=== PATIENT | female | born 1955 | race African-American/Black ===

== ENCOUNTER 2017-07-07 09:41 | Inpatient (IN) | payer OTHER ==
[2017-07-07] VITALS (7 sets, daily range): BP systolic 133–232; BP diastolic 71–120
[~2017-07-07] VITALS: Ht 167.6 cm; Wt 108.4 kg
[~2017-07-07 09:41] MED LIST: AMOXICILLIN,AM875 MG PO; ANTIVERT/2525 MG PO; ANTIVERT25 MG PO; AUGMENTIN 500500 MG PO; AUGMENTIN 875875 MG PO; AURALGAN 15 ML15 ML OT; CILOXAN 5 ML5 M1 OP; CLINDAMYCIN HC300 MG PO; DYRENIUM50 MG PO; FLONASE ALLERG9.9 ML NAS; GOOD SENSE ALLE10 MG PO; KEFLEX500 M1 PO; LISINOPRIL10 MG PO; LISINOPRIL40 MG PO; PREDNISONE10 MG PO; PREDNISONE20 M1 PO; ROBITUSSIN AC 110 ML PO; TOBREX OPHTH S2.5 ML OPH; TRIAMTERENE/HCT1 CAP PO
[2017-07-07] MEDS ORDERED: ATENOLOL25 MG PO (09:56)
[2017-07-07 10:29] LABS: BASO % 0.4 % (0.0-1.0); EOS # 0.1 10*3/uL (0.0-0.4); EOS % 2.5 % (1.0-4.0); HEMATOCRIT 37.7 % (37.0-47.0); HEMOGLOBIN 11.4 g/dl (12.0-16.0); LYMPH # 1.5 10*3/uL (1.3-4.4); LYMPH % 28.4 % (27.0-41.0); MEAN CELL VOLUME 82.7 fl (81.0-99.0); MEAN CORPUSCULAR HGB CONC 30.2 g/dl (33.0-37.0); MEAN PLATELET VOLUME 11.4 fl (9.6-12.3); MONO # 0.4 10*3/uL (0.1-1.0); NEUT # 3.2 10*3/uL (2.3-7.9); NEUT % 60.3 % (47.0-73.0); PLATELET COUNT AUTOMATED 155 10*3/uL (130-400); RED BLOOD COUNT 4.56 10*6/uL (4.10-5.10); WHITE BLOOD COUNT 5.2 10*3/uL (4.8-10.8)
[2017-07-07 10:44] LABS: ALBUMIN 3.3 gm/dl (3.1-4.5); ALKALINE PHOSPHATASE 86 U/L (45-117); BUN 12 mg/dl (7-24); CHLORIDE 111 mmol/L (98-107); CREATININE 1.04 mg/dL (0.55-1.02); MAGNESIUM 1.9 mg/dL (1.5-2.1); POTASSIUM 3.8 mmol/L (3.5-5.1); SGOT/AST 15 IU/L (3-35); SGPT/ALT 20 U/L (12-78); SODIUM 145 mmol/L (136-145); TOTAL PROTEIN 8.1 gm/dL (6.4-8.2)
[2017-07-07 10:48] LABS: TROPONIN I < 0.015 ng/ml (<0.045)
[2017-07-07] MEDS ORDERED: VENTOLIN 02.5 MG/3 M INH (11:43)
[2017-07-07] MEDS ORDERED: OXYBUTYNIN5 MG PO (11:46)
[2017-07-07] MEDS ORDERED: IRON325 M1 PO (11:46)
[2017-07-07] MEDS ORDERED: Motrin,Rufen800 MG PO (11:47)
[2017-07-08] VITALS: BP 140/87
[2017-07-08 06:50] LABS: BASO % 0.2 % (0.0-1.0); EOS # 0.2 10*3/uL (0.0-0.4); EOS % 2.8 % (1.0-4.0); HEMATOCRIT 34.6 % (37.0-47.0); HEMOGLOBIN 10.6 g/dl (12.0-16.0); LYMPH # 1.6 10*3/uL (1.3-4.4); LYMPH % 30.1 % (27.0-41.0); MEAN CELL VOLUME 83.6 fl (81.0-99.0); MEAN CORPUSCULAR HGB 25.6 pg (27.0-31.0); MEAN CORPUSCULAR HGB CONC 30.6 g/dl (33.0-37.0); MEAN PLATELET VOLUME 12.3 fl (9.6-12.3); MONO # 0.5 10*3/uL (0.1-1.0); MONO % 9.1 % (3.0-9.0); NEUT # 3.1 10*3/uL (2.3-7.9); NEUT % 57.4 % (47.0-73.0); PLATELET COUNT AUTOMATED 155 10*3/uL (130-400); RED BLOOD COUNT 4.14 10*6/uL (4.10-5.10); RED CELL DISTRI WIDTH 17.2 % (0-14.5); WHITE BLOOD COUNT 5.4 10*3/uL (4.8-10.8)
[2017-07-08 07:05] LABS: ALBUMIN 2.9 gm/dl (3.1-4.5); BUN 17 mg/dl (7-24); CHLORIDE 110 mmol/L (98-107); CHOLESTEROL 94 mg/dL (<200); CREATININE 1.03 mg/dL (0.55-1.02); POTASSIUM 4.1 mmol/L (3.5-5.1); SGOT/AST 12 IU/L (3-35); SGPT/ALT 15 U/L (12-78); SODIUM 144 mmol/L (136-145); TOTAL PROTEIN 7.3 gm/dL (6.4-8.2); TRIGLYCERIDES 85 mg/dl (<150); VLDL CHOLESTEROL 17 mg/dL (6-40)
[2017-07-08 07:11] LABS: ALKALINE PHOSPHATASE 76 U/L (45-117); FREE T4 1.14 ng/dl (0.76-1.46); HDL CHOLESTEROL 42 mg/dl (40-60); LDL CHOLESTEROL 35 mg/dL (9-159)
[2017-07-08 08:00] VITALS: BP 172/92
[2017-07-08 09:22] LABS: BILIRUBIN NEGATIVE (NEGATIVE); BLOOD 2+ (NEGATIVE); CLARITY CLOUDY (CLEAR); COLOR YELLOW (YELLOW); GLUCOSE NEGATIVE (NEGATIVE); KETONE NEGATIVE (NEGATIVE); LEUKO ESTERASE 1+ (NEGATIVE); NITRITE POSITIVE (NEGATIVE); PH 5.5 (5.0-9.0); UROBILINOGEN 0.2 E.U./dl (0.2-1.0)
[2017-07-08 09:56] LABS: BACTERIA 4+; RBC 21-30 rbc/hpf (0-2); WBC 51-100 wbc/hpf (0-5)
[2017-07-08 11:55] VITALS: BP 160/88
[2017-07-08 12:00] VITALS: BP 145/80
[2017-07-08] MEDS ORDERED: HYDR25T PO (13:39)
== END 2017-07-08 14:24 | disposition home or self-care (01) | DRG 305 ==
LOC: ED 09:41 → EDHOLD 11:10 → 4E 11:22
PROVIDERS: Internal Medicine; Nurse Practitioner Family; ADMIT Internal Medicine
DX: I16.0 Hypertensive urgency (principal); E87.8 Other disorders of electrolyte and fluid balance, not elsewhere classified; E44.0 Moderate protein-calorie malnutrition; Z68.41 Body mass index [BMI] 40.0-44.9, adult; D64.9 Anemia, unspecified; N32.81 Overactive bladder; J45.50 Severe persistent asthma, uncomplicated; H83.09 Labyrinthitis, unspecified ear; E66.01 Morbid (severe) obesity due to excess calories; J32.9 Chronic sinusitis, unspecified; I10 Essential (primary) hypertension; Z91.14 Patient's other noncompliance with medication regimen; Z79.899 Other long term (current) drug therapy; Z87.440 Personal history of urinary (tract) infections; Z90.710 Acquired absence of both cervix and uterus; Z82.49 Family history of ischemic heart disease and other diseases of the circulatory system; Z81.1 Family history of alcohol abuse and dependence

== ENCOUNTER 2017-09-13 10:38 | Inpatient (IN) | payer OTHER ==
[~2017-09-13] VITALS: Ht 167.6 cm; Wt 110.7 kg
--- NOTE | ~2017-09-13 | PR ---
[place], [place] PROGRESS NOTE NAME: VARINDER LEAL UNIT #: [id number] ROOM: 505 DOCTOR: PHILIP CALIX MD BIRTHDATE: [birth year] DOS: 09/15/2017 SUBJECTIVE: The patient was seen and examined. She is awake and alert and resting in bed. She is on room air. She states she feels a lot better. She denies shortness of breath, fevers, chills or night sweats. Her appetite is getting better. PHYSICAL EXAMINATION: VITAL SIGNS: Temperature 100.2, pulse 82, respiratory rate 18, blood pressure 129/70. HEENT: Shows no JVD. LUNGS: Clear. HEART: Normal S1, S2. No rub, thrill or gallop. ABDOMEN: Soft, nontender. There is no organomegaly. EXTREMITIES: Had no edema. SKIN: Showed no rash. LABORATORY DATA: Hemoglobin 9.0, white count of 9.3, platelets of 132, BUN 29, creatinine 1.9, glucose 130, sodium 141, potassium 3.5, CO2 of 23, calcium 8.1, phosphorus 2.1, albumin 2.3. IMPRESSION: 1. Acute kidney injury, most likely related to prerenal factors. The patient's renal function is improving. Continue intravenous fluids for now. Likely, this can be discontinued tomorrow if she continues to show improvement in her renal function and is tolerating diet. 2. Sepsis/bacteremia. Continue antibiotics as per the primary service. Dose adjusted for current creatinine clearance. 3. Renal lesion. The patient will need followup imaging study at some point as an outpatient. 4. Anemia. Follow hemoglobin and hematocrit. Transfuse p.r.n. 5. Hypertension. Blood pressure currently is acceptable. Her AMY inhibitor and thiazide have been held. [place], [place] PROGRESS NOTE NAME: VARINDER LEAL UNIT #: [id number] ROOM: 505 DOCTOR: PHILIP CALIX MD BIRTHDATE: [birth year] PHILIP CALIX MD CM:PNTRANS [id number] PHILIP CALIX MD 09/15/179 interface
--- NOTE | ~2017-09-13 | PR ---
[place], [place] PROGRESS NOTE [id number] UN[facility] #: [id number] ROOM: 505 DOCTOR: PHILIP CALIX MD BIRTHDATE: [birth year] DOS: 09/16/2017 SUBJECTIVE: The patient was seen and examined. She is awake and alert. She is being discharged. She feels much better. Denies dysuria or hematuria. PHYSICAL EXAMINATION: VITAL SIGNS: Temperature 98.1, pulse 76, respirations 18, blood pressure 127/76. HEENT AND NECK: Shows no JVD. LUNGS: Clear. HEART: Normal S1, S2. No rub. ABDOMEN: Soft, nontender. There is no organomegaly. EXTREMITIES: Had trace edema. SKIN: Showed no rash. LABORATORY DATA: Hemoglobin 8.8, white count 6.6, platelets 151. BUN 19, creatinine 1.37, sodium 145, potassium is 3.9, calcium is 8.2. IMPRESSION: 1. Acute kidney injury, with continued improvement. The etiology is likely related to prerenal factors. 2. Sepsis/bacteremia. Antibiotics per the primary service. 3. Renal lesion. The patient will need followup imaging study at some point as an outpatient. 4. Anemia. H and H are stable. 5. Hypertension. AMY inhibitor and thiazide have been held. This likely can be resumed as an outpatient. She is urged to follow with her primary care provider for reevaluation. PHILIP CALIX MD CM:PNTRANS 40 PHILIP CALIX MD 09/16/171941 interface
[~2017-09-13 10:38] MED LIST changes: +ATENOLOL25 MG PO; +HYDR25T PO; +IRON325 M1 PO; +LISINOPRIL10 M1 PO; -LISINOPRIL40 MG PO; +Motrin,Rufen800 MG PO; +OXYBUTYNIN5 MG PO; +VENTOLIN 02.5 MG/3 M INH
[2017-09-13 11:07] VITALS: BP 145/86
[2017-09-13 11:59] LABS: BASO % 0.2 % (0.0-1.0); HEMATOCRIT 34.1 % (37.0-47.0); HEMOGLOBIN 10.6 g/dl (12.0-16.0); LYMPH # 1.2 10*3/uL (1.3-4.4); MEAN CELL VOLUME 82.4 fl (81.0-99.0); MEAN CORPUSCULAR HGB 25.6 pg (27.0-31.0); MEAN CORPUSCULAR HGB CONC 31.1 g/dl (33.0-37.0); MEAN PLATELET VOLUME 11.3 fl (9.6-12.3); MONO # 1.1 10*3/uL (0.1-1.0); MONO % 6.4 % (3.0-9.0); NEUT # 14.1 10*3/uL (2.3-7.9); NEUT % 85.4 % (47.0-73.0); PLATELET COUNT AUTOMATED 201 10*3/uL (130-400); RED BLOOD COUNT 4.14 10*6/uL (4.10-5.10); RED CELL DISTRI WIDTH 16.7 % (0-14.5); WHITE BLOOD COUNT 16.5 10*3/uL (4.8-10.8)
[2017-09-13 12:14] LABS: ALBUMIN 3.4 gm/dl (3.1-4.5); CREATININE 2.6 mg/dL (0.55-1.02); POTASSIUM 3.9 mmol/L (3.5-5.1)
--- NOTE | 2017-09-13 12:51 | NUR ---
PT REMAINS W/O ACUTE DISTRESS NOTED AWAITING FAMILY @ BEDSIDE AND CALL LIGHT WITHIN REACH,DISCUSSED WITH PT AND FAMILY THAT STILL AWAITING A URINALYSIS FOR ADDITIONAL PLAN OF CARE.
[2017-09-13 13:08] VITALS: BP 100/58
[2017-09-13 13:10] LABS: BILIRUBIN NEGATIVE (NEGATIVE); BLOOD 2+ (NEGATIVE); CLARITY CLOUDY (CLEAR); COLOR YELLOW (YELLOW); GLUCOSE NEGATIVE (NEGATIVE); KETONE NEGATIVE (NEGATIVE); LEUKO ESTERASE 3+ (NEGATIVE); NITRITE POSITIVE (NEGATIVE); PH 5.5 (5.0-9.0); UROBILINOGEN 0.2 E.U./dl (0.2-1.0)
[2017-09-13 13:26] LABS: BACTERIA 4+; WBC TNTC wbc/hpf (0-5)
--- NOTE | 2017-09-13 13:37 | NUR ---
PT ACCIDENTILY PULLED OUT #22 I.V. TO RT HAND.
--- NOTE | 2017-09-13 14:11 | NUR ---
PT ACCIDENTILY PULLED OUT #22 I.V. RT HAND AGAIN WHILE GIVING REPORT TO BLAIR PARDO.
--- NOTE | 2017-09-13 14:50 | NUR ---
A 62, admitted to 5E, under the services of LUIGI Anglin DO with a diagnosis of UTI. Chief complaint is UTI, FEVER, CHILLS. Patient arrived via wheel chair from ER. Monitor applied. Initial assessment completed. Vital signs taken and recorded. LUIGI ANGLIN DO notified of admission to the unit. Orders received. See assessment for past medical history, medications and allergies. Patient and/or family oriented to unit. visitation policy reviewed. Clothing/patient valuable form completed. TARYN CHAVIRA
[2017-09-13 14:53] VITALS: BP 116/60
[2017-09-13] MEDS ORDERED: METOPROLOL25 MG PO (15:14)
[2017-09-13] MEDS ORDERED: LORADAMED10 MG PO (15:15)
--- NOTE | 2017-09-13 15:15 | NUR ---
MEDICATION REQ VERIFIED WITH ATWATER JORGE VIDES AT THIS TIME
[2017-09-13 20:00] VITALS: BP 90/52
[2017-09-14] VITALS: BP 91/56
--- NOTE | 2017-09-14 01:26 | NUR ---
24 HR chart check completed.
--- NOTE | 2017-09-14 01:28 | NUR ---
Called and notified Dr. Victor regarding preliminary blood culture result. She said that the Zosyn should take care of it but that she would put in a order for a second set.
--- NOTE | 2017-09-14 01:57 | NUR ---
Called and notified Dr. Victor regarding second preliminary blood culture result and she said "ok,we should be covered."
[2017-09-14 05:06] LABS: ALBUMIN 2.8 gm/dl (3.1-4.5); CREATININE 2.46 mg/dL (0.55-1.02); FREE T4 1.35 ng/dl (0.76-1.46); POTASSIUM 3.9 mmol/L (3.5-5.1); TOTAL PROTEIN 7.9 gm/dL (6.4-8.2)
[2017-09-14 05:11] LABS: THYROID STIM HORMONE (HS) 1.27 uIU/ml (0.358-4.75)
[2017-09-14 06:08] LABS: BASO % 0.1 % (0.0-1.0); EOS % 0.1 % (1.0-4.0); HEMOGLOBIN 9.5 g/dl (12.0-16.0); LYMPH # 1.1 10*3/uL (1.3-4.4); LYMPH % 8.2 % (27.0-41.0); MEAN CELL VOLUME 84.2 fl (81.0-99.0); MEAN CORPUSCULAR HGB 25.8 pg (27.0-31.0); MEAN CORPUSCULAR HGB CONC 30.6 g/dl (33.0-37.0); MEAN PLATELET VOLUME 11.5 fl (9.6-12.3); MONO # 0.9 10*3/uL (0.1-1.0); MONO % 6.5 % (3.0-9.0); NEUT # 11.5 10*3/uL (2.3-7.9); NEUT % 83.4 % (47.0-73.0); RED BLOOD COUNT 3.68 10*6/uL (4.10-5.10); WHITE BLOOD COUNT 13.8 10*3/uL (4.8-10.8)
[2017-09-14 06:44] LABS: PLATELET COUNT AUTOMATED 138 10*3/uL (130-400)
[2017-09-14 08:00] VITALS: BP 150/76
[2017-09-14 08:12] LABS: VITAMIN D, 25-HYDROXY 12.9 ng/mL (30-100)
--- NOTE | 2017-09-14 08:12 | NUR ---
PRN TYLENOL GIVEN FOR TEMP OF 100.3.
--- NOTE | 2017-09-14 09:00 | NUR ---
Blade Changer in to talk to patient. Patient states lives at home with son. There are few steps in the home. Physician: ruy bonilla [facility]acy: [facility] [place] [facility]: none Patient's level of ADLs: INDEPENDENT Patient has working utilities: all working DME: none Follow-up physician's appointment after d/c: will be made by hospitalist nurse director upon discharge Does patient want to access PORTAL?: no Discharge plan discussed with patient, patient lives at home with son, states she is independent in adls and ambulation, patient states she will be going back home and denies any home needs. KEITH DAS
--- NOTE | 2017-09-14 09:12 | NUR ---
PRN TYLENOL EFFECTIVE FOR TEMP, TEMP RECORDED 99.0
[2017-09-14 12:00] VITALS: BP 133/68; BP 148/68
--- NOTE | 2017-09-14 13:48 | NUR ---
PRN ZOFRAN GIVEN FOR PT REPORT NAUSEA.
--- NOTE | 2017-09-14 14:48 | NUR ---
PRN ZOFRAN EFFECTIVE, PT REPORTS NAUSEA HAS DECREASED.
[2017-09-14 16:00] VITALS: BP 104/62
[2017-09-14 20:00] VITALS: BP 134/75
[2017-09-15] VITALS: BP 101/59
[2017-09-15 06:02] LABS: BASO % 0.2 % (0.0-1.0); EOS # 0.3 10*3/uL (0.0-0.4); EOS % 2.7 % (1.0-4.0); HEMATOCRIT 29.6 % (37.0-47.0); LYMPH # 1.1 10*3/uL (1.3-4.4); MEAN CELL VOLUME 83.9 fl (81.0-99.0); MEAN CORPUSCULAR HGB 25.5 pg (27.0-31.0); MEAN CORPUSCULAR HGB CONC 30.4 g/dl (33.0-37.0); MEAN PLATELET VOLUME 11.5 fl (9.6-12.3); MONO # 0.6 10*3/uL (0.1-1.0); MONO % 6.3 % (3.0-9.0); NEUT # 7.2 10*3/uL (2.3-7.9); NEUT % 77.7 % (47.0-73.0); PLATELET COUNT AUTOMATED 132 10*3/uL (130-400); RED BLOOD COUNT 3.53 10*6/uL (4.10-5.10); WHITE BLOOD COUNT 9.3 10*3/uL (4.8-10.8)
[2017-09-15 06:21] LABS: ALBUMIN 2.3 gm/dl (3.1-4.5); CREATININE 1.89 mg/dL (0.55-1.02); PHOSPHOROUS 2.1 mg/dL (2.5-4.9); POTASSIUM 3.5 mmol/L (3.5-5.1)
[2017-09-15 08:00] VITALS: BP 144/64
--- NOTE | 2017-09-15 08:00 | NUR ---
RESTING QUIETLY NO C/O NO DISTRESS NOTED. IV FLUIDS INFUSING. PT STATES SHE FEELS GOOD. WILL CONTINUE TO MONITOR. SEE SHIFT ASSESSMENT.
[2017-09-15 12:00] VITALS: BP 129/70
--- NOTE | 2017-09-15 12:06 | NUR ---
TYLENOL 2 TABS GIVEN FOR ELEVATED TEMP 100.3.
[2017-09-15 16:00] VITALS: BP 116/74
[2017-09-15 20:00] VITALS: BP 120/63
--- NOTE | 2017-09-15 20:30 | NUR ---
PT. AWAKE, ALERT AND ORIENTED X 3 AT THIS TIME. PT. IN BED AT THIS TIME. PT. LUNGS DIMINISHED T/O, DENIES SOB, ON RA. PT. HRR, PPP, NO EDEMA, DENIES CP. BOWEL SOUNDS NORMO X 4, DENIES N/V/D. PT. AMBULATORY, SKIN W/D/I, APPROPRIATE FOR ETHNICITY. CALL LIGHT WITHIN REACH, BED IN LOWEST POSITION, WHEELS LOCKED.
--- NOTE | 2017-09-15 22:30 | NUR ---
PT. GIVEN TYLENOL FOR ELEVATED TEMP 100.2. WILL EVALUATE EFFECTIVENESS.
--- NOTE | 2017-09-15 23:00 | NUR ---
PT. TEMP 98.6
[2017-09-16] VITALS: BP 113/53
[2017-09-16 06:11] LABS: BASO % 0.3 % (0.0-1.0); EOS # 0.4 10*3/uL (0.0-0.4); EOS % 6.2 % (1.0-4.0); HEMATOCRIT 28.7 % (37.0-47.0); HEMOGLOBIN 8.8 g/dl (12.0-16.0); LYMPH # 1.5 10*3/uL (1.3-4.4); LYMPH % 22.3 % (27.0-41.0); MEAN CELL VOLUME 82.9 fl (81.0-99.0); MEAN CORPUSCULAR HGB 25.4 pg (27.0-31.0); MEAN CORPUSCULAR HGB CONC 30.7 g/dl (33.0-37.0); MEAN PLATELET VOLUME 11.4 fl (9.6-12.3); MONO # 0.5 10*3/uL (0.1-1.0); MONO % 7.7 % (3.0-9.0); NEUT # 4.1 10*3/uL (2.3-7.9); NEUT % 62.9 % (47.0-73.0); PLATELET COUNT AUTOMATED 151 10*3/uL (130-400); RED BLOOD COUNT 3.46 10*6/uL (4.10-5.10); RED CELL DISTRI WIDTH 16.8 % (0-14.5); WHITE BLOOD COUNT 6.6 10*3/uL (4.8-10.8)
[2017-09-16 06:21] LABS: CREATININE 1.37 mg/dL (0.55-1.02); POTASSIUM 3.9 mmol/L (3.5-5.1)
--- NOTE | 2017-09-16 06:54 | NUR ---
BRANDEE GUSMAN CONTACTED FOR BLOOD CULTURE RESULTS, HE STATES HE WILL LOOK AT IT.
[2017-09-16 08:00] VITALS: BP 127/76
--- NOTE | 2017-09-16 08:00 | NUR ---
RESTING QUIETLY NO C/O NO DISTRESS NOTED. STATES SHE FEEL BETTER TODAY. IV FLUIDS INFUSING. WILL CONTINUE TO MONITOR.
[2017-09-16] MEDS ORDERED: CIPRO500 MG PO (11:17)
--- NOTE | 2017-09-16 12:30 | NUR ---
DISCHARGED TO HOME IN CARE OF SELF. INSTRUCTIONS AND PERSCRIPTIONS REVIEWED WITH PT. VOICED UNDERSTANDING. REFUSED FLU VACCINE
== END 2017-09-16 12:30 | disposition home or self-care (01) | DRG 871 ==
LOC: ED 10:38 → 5E 13:40 → EDHOLD 13:40 → 5E 13:52
PROVIDERS: Internal Medicine; Nurse Practitioner Family; Registered Nurse; ADMIT Internal Medicine
DX: A41.50 Gram-negative sepsis, unspecified (principal); N17.0 Acute kidney failure with tubular necrosis; E44.0 Moderate protein-calorie malnutrition; N12 Tubulo-interstitial nephritis, not specified as acute or chronic; R65.20 Severe sepsis without septic shock; E66.01 Morbid (severe) obesity due to excess calories; I10 Essential (primary) hypertension; D50.9 Iron deficiency anemia, unspecified; D35.02 Benign neoplasm of left adrenal gland; E83.51 Hypocalcemia; R73.9 Hyperglycemia, unspecified; Z90.710 Acquired absence of both cervix and uterus; Z81.1 Family history of alcohol abuse and dependence; Z79.899 Other long term (current) drug therapy; Z68.39 Body mass index [BMI] 39.0-39.9, adult

== ENCOUNTER 2017-11-22 09:00 | Emergency (ER) | payer OTHER ==
[~2017-11-22] VITALS: Wt 117.0 kg
[~2017-11-22 09:00] MED LIST changes: +CIPRO500 MG PO; +LORADAMED10 MG PO; +METOPROLOL25 MG PO
[2017-11-22 09:49] LABS: BILIRUBIN NEGATIVE (NEGATIVE); BLOOD 2+ (NEGATIVE); CLARITY CLOUDY (CLEAR); COLOR YELLOW (YELLOW); GLUCOSE NEGATIVE (NEGATIVE); KETONE NEGATIVE (NEGATIVE); LEUKO ESTERASE 3+ (NEGATIVE); NITRITE POSITIVE (NEGATIVE); PH 5.5 (5.0-9.0); UROBILINOGEN 0.2 E.U./dl (0.2-1.0)
[2017-11-22 09:51] LABS: WBC TNTC wbc/hpf (0-5)
[2017-11-22] MEDS ORDERED: PYRIDIUM200 M1 PO (09:56)
[2017-11-22] MEDS ORDERED: SEPTDS PO (09:56)
== END 2017-11-22 10:13 | disposition home or self-care (01) ==
LOC: ED 09:00
PROVIDERS: Nurse Practitioner Family
DX: N39.0 Urinary tract infection, site not specified (principal)

== ENCOUNTER → 2018-04-01 | Outpatient (CLI) | payer MEDICARE, MEDICAID ==
[~2018-04-01] MED LIST changes: +PYRIDIUM200 M1 PO; +SEPTDS PO
== END | disposition home or self-care (01) ==
LOC: CT 03-26 10:00
DX: K57.30 Diverticulosis of large intestine without perforation or abscess without bleeding (principal); N28.1 Cyst of kidney, acquired; Z90.710 Acquired absence of both cervix and uterus

== ENCOUNTER 2019-01-25 03:48 | Emergency (ER) | payer OTHER ==
[~2019-01-25] VITALS: Ht 167.6 cm; Wt 117.9 kg
--- NOTE | ~2019-01-25 | EKG ---
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
[~2019-01-25 03:48] MED LIST changes: +AMINOPHYLLIN200 MG PO; +APRESOLINE10 MG PO; +GUAIFENESIN-PS1 EACH PO; +LISINOPRIL20 MG PO; +NORVASC5 MG PO; +VIBRAMYCIN100 MG PO; +VITAMIN D-32000 UNIT PO; +ZESTRIL10 MG PO
[2019-01-25 04:49] LABS: BILIRUBIN NEGATIVE (NEGATIVE); BLOOD 1+ (NEGATIVE); CLARITY SL CLOUDY (CLEAR); COLOR YELLOW (YELLOW); GLUCOSE NEGATIVE (NEGATIVE); KETONE NEGATIVE (NEGATIVE); LEUKO ESTERASE 2+ (NEGATIVE); NITRITE NEGATIVE (NEGATIVE); UROBILINOGEN 0.2 E.U./dl (0.2-1.0)
[2019-01-25 04:50] LABS: BASO % 0.5 % (0.0-1.0); EOS # 0.1 10*3/uL (0.0-0.4); EOS % 2.1 % (1.0-4.0); HEMATOCRIT 39.5 % (37.0-47.0); HEMOGLOBIN 11.8 g/dl (12.0-16.0); LYMPH # 1.4 10*3/uL (1.3-4.4); LYMPH % 25.2 % (27.0-41.0); MEAN CELL VOLUME 84.9 fl (81.0-99.0); MEAN CORPUSCULAR HGB 25.4 pg (27.0-31.0); MEAN CORPUSCULAR HGB CONC 29.9 g/dl (33.0-37.0); MEAN PLATELET VOLUME 11.4 fl (9.6-12.3); MONO # 0.3 10*3/uL (0.1-1.0); MONO % 5.5 % (3.0-9.0); NEUT # 3.7 10*3/uL (2.3-7.9); NEUT % 66.3 % (47.0-73.0); PLATELET COUNT AUTOMATED 151 10*3/uL (130-400); RED BLOOD COUNT 4.65 10*6/uL (4.10-5.10); RED CELL DISTRI WIDTH 17.1 % (0-14.5); WHITE BLOOD COUNT 5.6 10*3/uL (4.8-10.8)
[2019-01-25 05:05] LABS: BACTERIA 2+; EPITHELIAL CELLS 25-30; WBC TNTC wbc/hpf (0-5)
[2019-01-25] MEDS ORDERED: KEFLEX500 M1 PO (05:08)
[2019-01-25 05:15] LABS: ALBUMIN 3.4 gm/dl (3.1-4.5); ALKALINE PHOSPHATASE 95 U/L (45-117); BUN 25 mg/dl (7-24); CHLORIDE 111 mmol/L (98-107); CREATININE 1.04 mg/dL (0.55-1.02); LIPASE 105 U/L (73-393); SGOT/AST 9 IU/L (3-35); SGPT/ALT 18 U/L (12-78); SODIUM 144 mmol/L (136-145); TOTAL PROTEIN 8.4 gm/dL (6.4-8.2)
[2019-01-25 05:20] LABS: TROPONIN I < 0.015 ng/ml (<0.045)
[2019-01-25] MEDS ORDERED: CIPRO500 MG PO (13:52)
== END 2019-01-25 06:45 | disposition home or self-care (01) ==
LOC: ED 03:48
PROVIDERS: Emergency Medicine Emergency Medical Services
DX: N39.0 Urinary tract infection, site not specified (principal); R42 Dizziness and giddiness; R26.81 Unsteadiness on feet; E66.01 Morbid (severe) obesity due to excess calories; J45.909 Unspecified asthma, uncomplicated; I13.0 Hypertensive heart and chronic kidney disease with heart failure and stage 1 through stage 4 chronic kidney disease, or unspecified chronic kidney disease; N18.3 Chronic kidney disease, stage 3 (moderate); I50.32 Chronic diastolic (congestive) heart failure; Z79.899 Other long term (current) drug therapy; Z87.440 Personal history of urinary (tract) infections

== ENCOUNTER 2019-01-30 03:43 | Emergency (ER) | payer OTHER ==
[~2019-01-30] VITALS: Ht 167.6 cm; Wt 117.9 kg
--- NOTE | ~2019-01-30 | EKG ---
[place], [place] ELECTROCARDIOGRAM REPORT NAME: VARINDER LEAL UNIT #: [id number] ROOM: DOCTOR: EPIPHANY DRAFT REPORT BIRTHDATE: [birth year] [facility] Test Date: 2019-01-30 Test Time: 04:23:35 Pat Name: VARINDER LEAL Department: Room: Gender: F Family Support Coordinator: Christine Connor : 1955 Requested By: VIBHA MONTERO Order Number: [id number] Reading MD: Jose Vincent MD Measurements Intervals [place] Rate: 83 P: 34 [place]: 194 QRS: -23 QRSD: 90 T: 55 QT: 381 QTc: 448 Interpretive Statements Sinus rhythm Abnormal R-wave progression, early transition Left ventricular hypertrophy Baseline wander in lead(s) V1 Compared to ECG 01/25/2019 04:21:06 No significant changes Electronically Signed On 01-31-2019 13:22:28 PDT by Jose Vincent MD CM:EKGRPT:ELECTROCARDIOGRAM REPORT [id number] [id number] VIBHA MONTERO MD EPIPHANY DRAFT REPORT VIBHA MONTERO MD
[2019-01-30 04:19] LABS: BASO % 0.4 % (0.0-1.0); EOS # 0.1 10*3/uL (0.0-0.4); EOS % 2.4 % (1.0-4.0); HEMATOCRIT 37.2 % (37.0-47.0); HEMOGLOBIN 11.2 g/dl (12.0-16.0); LYMPH # 1.7 10*3/uL (1.3-4.4); LYMPH % 33.3 % (27.0-41.0); MEAN CELL VOLUME 84.9 fl (81.0-99.0); MEAN CORPUSCULAR HGB 25.6 pg (27.0-31.0); MEAN CORPUSCULAR HGB CONC 30.1 g/dl (33.0-37.0); MEAN PLATELET VOLUME 11.3 fl (9.6-12.3); MONO # 0.4 10*3/uL (0.1-1.0); MONO % 7.1 % (3.0-9.0); NEUT # 2.8 10*3/uL (2.3-7.9); NEUT % 56.2 % (47.0-73.0); PLATELET COUNT AUTOMATED 147 10*3/uL (130-400); RED BLOOD COUNT 4.38 10*6/uL (4.10-5.10); RED CELL DISTRI WIDTH 16.8 % (0-14.5)
[2019-01-30 04:45] LABS: ALBUMIN 3.3 gm/dl (3.1-4.5); ALKALINE PHOSPHATASE 87 U/L (45-117); BUN 20 mg/dl (7-24); CHLORIDE 113 mmol/L (98-107); LIPASE 273 U/L (73-393); POTASSIUM 3.7 mmol/L (3.5-5.1); SGOT/AST 13 IU/L (3-35); SGPT/ALT 21 U/L (12-78); SODIUM 147 mmol/L (136-145)
[2019-01-30 04:50] LABS: TROPONIN I < 0.015 ng/ml (<0.045)
[2019-01-30 06:05] LABS: BILIRUBIN NEGATIVE (NEGATIVE); BLOOD NEGATIVE (NEGATIVE); CLARITY SL CLOUDY (CLEAR); COLOR YELLOW (YELLOW); GLUCOSE NEGATIVE (NEGATIVE); KETONE NEGATIVE (NEGATIVE); LEUKO ESTERASE TRACE (NEGATIVE); NITRITE NEGATIVE (NEGATIVE); PH 5.5 (5.0-9.0); SPECIFIC GRAVITY 1.025 (1.005-1.030); UROBILINOGEN 0.2 E.U./dl (0.2-1.0)
[2019-01-30] MEDS ORDERED: ATIVAN1 MG PO (06:17)
[2019-01-30 06:20] LABS: YEAST 4+
[2019-01-30 06:21] LABS: BACTERIA 2+; EPITHELIAL CELLS 20-25; WBC 31-40 wbc/hpf (0-5)
[2019-01-30] MEDS ORDERED: FLUCONAZOLE100 MG PO (06:25)
== END 2019-01-30 06:49 | disposition home or self-care (01) ==
LOC: ED 03:43
PROVIDERS: Emergency Medicine Emergency Medical Services
DX: F41.1 Generalized anxiety disorder (principal); F43.0 Acute stress reaction; I13.0 Hypertensive heart and chronic kidney disease with heart failure and stage 1 through stage 4 chronic kidney disease, or unspecified chronic kidney disease; N18.3 Chronic kidney disease, stage 3 (moderate); I50.32 Chronic diastolic (congestive) heart failure; J45.909 Unspecified asthma, uncomplicated; E66.01 Morbid (severe) obesity due to excess calories; Z90.710 Acquired absence of both cervix and uterus

== ENCOUNTER 2019-11-10 15:36 | Emergency (ER) | payer OTHER ==
[~2019-11-10] VITALS: Ht 167.6 cm; Wt 121.6 kg
[~2019-11-10 15:36] MED LIST changes: +ATIVAN1 MG PO; +FLUCONAZOLE100 MG PO
[2019-11-10 17:17] LABS: BASO % 0.4 % (0.0-1.0); EOS # 0.2 10*3/uL (0.0-0.4); EOS % 2.7 % (1.0-4.0); HEMATOCRIT 38.6 % (37.0-47.0); HEMOGLOBIN 11.3 g/dl (12.0-16.0); LYMPH # 1.8 10*3/uL (1.3-4.4); LYMPH % 24.6 % (27.0-41.0); MEAN CELL VOLUME 86.4 fl (81.0-99.0); MEAN CORPUSCULAR HGB 25.3 pg (27.0-31.0); MEAN CORPUSCULAR HGB CONC 29.3 g/dl (33.0-37.0); MEAN PLATELET VOLUME 11.3 fl (9.6-12.3); MONO # 0.5 10*3/uL (0.1-1.0); MONO % 7.1 % (3.0-9.0); NEUT # 4.8 10*3/uL (2.3-7.9); NEUT % 64.7 % (47.0-73.0); PLATELET COUNT AUTOMATED 178 10*3/uL (130-400); RED BLOOD COUNT 4.47 10*6/uL (4.10-5.10); RED CELL DISTRI WIDTH 16.7 % (0-14.5); WHITE BLOOD COUNT 7.4 10*3/uL (4.8-10.8)
[2019-11-10 17:26] LABS: BILIRUBIN NEGATIVE (NEGATIVE); BLOOD 2+ (NEGATIVE); CLARITY CLOUDY (CLEAR); COLOR YELLOW (YELLOW); GLUCOSE NEGATIVE (NEGATIVE); KETONE NEGATIVE (NEGATIVE); LEUKO ESTERASE 1+ (NEGATIVE); NITRITE POSITIVE (NEGATIVE); PH 6.5 (5.0-9.0); SPECIFIC GRAVITY 1.025 (1.005-1.030); UROBILINOGEN 0.2 E.U./dl (0.2-1.0)
[2019-11-10 17:27] LABS: INTERNATIONAL NORM RATIO 0.9 (2.0-3.5)
[2019-11-10 17:34] LABS: BACTERIA 3+; EPITHELIAL CELLS 0-2; RBC 16-20 rbc/hpf (0-2)
[2019-11-10 17:56] LABS: ALBUMIN 3.5 gm/dl (3.1-4.5); ALKALINE PHOSPHATASE 103 U/L (45-117); BUN 22 mg/dl (7-24); CHLORIDE 111 mmol/L (98-107); CREATININE 1.13 mg/dL (0.55-1.02); POTASSIUM 3.8 mmol/L (3.5-5.1); SGOT/AST 11 IU/L (3-35); SGPT/ALT 18 U/L (12-78); SODIUM 144 mmol/L (136-145); TOTAL PROTEIN 8.1 gm/dL (6.4-8.2)
[2019-11-10 17:57] LABS: TROPONIN I < 0.015 ng/ml (<0.045)
[2019-11-10] MEDS ORDERED: SEPTDS PO (19:59)
== END 2019-11-10 20:20 | disposition home or self-care (01) ==
LOC: ED 15:36
PROVIDERS: Physician Assistant
DX: N39.0 Urinary tract infection, site not specified (principal); R79.1 Abnormal coagulation profile; I10 Essential (primary) hypertension; Z79.899 Other long term (current) drug therapy

== ENCOUNTER 2021-06-24 11:20 | Inpatient (IN) | payer OTHER ==
[~2021-06-24] VITALS: Ht 170.2 cm; Wt 131.6 kg
[2021-06-24 11:42] VITALS: BP 148/84
[2021-06-24 11:47] LABS: HEMATOCRIT 35.1 % (37.0-47.0); LYMPH % 24.1 % (27.0-41.0); MEAN CORPUSCULAR HGB 24.8 pg (27.0-31.0); MEAN CORPUSCULAR HGB CONC 30.2 g/dl (33.0-37.0); MEAN PLATELET VOLUME 10.7 fl (9.6-12.3); MONO # 0.4 10*3/uL (0.1-1.0); MONO % 9.5 % (3.0-9.0); NEUT # 2.9 10*3/uL (2.3-7.9); NEUT % 66.2 % (47.0-73.0); PLATELET COUNT AUTOMATED 115 10*3/uL (130-400); RED BLOOD COUNT 4.28 10*6/uL (4.10-5.10); RED CELL DISTRI WIDTH 17.2 % (0-14.5); WHITE BLOOD COUNT 4.3 10*3/uL (4.8-10.8)
[2021-06-24 12:03] LABS: ALBUMIN 3.2 gm/dl (3.1-4.5); ALKALINE PHOSPHATASE 71 U/L (45-117); BUN 13 mg/dl (7-24); CHLORIDE 107 mmol/L (98-107); CREATININE 1.13 mg/dL (0.55-1.02); POTASSIUM 3.8 mmol/L (3.5-5.1); SGOT/AST 22 IU/L (3-35); SGPT/ALT 22 U/L (12-78); SODIUM 141 mmol/L (136-145); TOTAL PROTEIN 7.7 gm/dL (6.4-8.2)
[2021-06-24 12:05] LABS: TROPONIN I < 0.015 ng/ml (<0.045)
[2021-06-24 14:37] VITALS: BP 141/87
[2021-06-24 15:10] VITALS: BP 184/82
[2021-06-24] MEDS ORDERED: Motrin,Rufen800 MG PO (16:41)
[2021-06-24] MEDS ORDERED: HYDR25T PO (16:42)
[2021-06-24] MEDS ORDERED: LOPRESSOR25 MG PO (16:45)
[2021-06-24 17:29] VITALS: BP 160/90
[2021-06-24 20:00] VITALS: BP 128/74
[2021-06-25] VITALS: BP 130/81
[2021-06-25 04:12] VITALS: BP 138/78
[2021-06-25 06:14] LABS: BUN 16 mg/dl (7-24); CHLORIDE 106 mmol/L (98-107); CHOLESTEROL 88 mg/dL (<200); LDH 303 U/L (84-246); POTASSIUM 3.7 mmol/L (3.5-5.1); SODIUM 141 mmol/L (136-145)
[2021-06-25 06:25] LABS: ALKALINE PHOSPHATASE 65 U/L (45-117); CREATININE 0.97 mg/dL (0.55-1.02); LDL CHOLESTEROL 31 mg/dL (9-159); SGOT/AST 20 IU/L (3-35); SGPT/ALT 21 U/L (12-78); TOTAL PROTEIN 7.3 gm/dL (6.4-8.2); TRIGLYCERIDES 97 mg/dl (<150)
[2021-06-25 06:28] LABS: HEMATOCRIT 35.1 % (37.0-47.0); LYMPH # 0.7 10*3/uL (1.3-4.4); LYMPH % 22.3 % (27.0-41.0); MEAN CELL VOLUME 81.4 fl (81.0-99.0); MEAN CORPUSCULAR HGB 24.4 pg (27.0-31.0); MEAN CORPUSCULAR HGB CONC 29.9 g/dl (33.0-37.0); MEAN PLATELET VOLUME 11.3 fl (9.6-12.3); MONO # 0.3 10*3/uL (0.1-1.0); MONO % 9.1 % (3.0-9.0); NEUT # 2.1 10*3/uL (2.3-7.9); NEUT % 68.3 % (47.0-73.0); PLATELET COUNT AUTOMATED 113 10*3/uL (130-400); RED BLOOD COUNT 4.31 10*6/uL (4.10-5.10); RED CELL DISTRI WIDTH 17.1 % (0-14.5); WHITE BLOOD COUNT 3.1 10*3/uL (4.8-10.8)
[2021-06-25 07:00] LABS: VITAMIN D, 25-HYDROXY 27.4 ng/mL (30-100)
[2021-06-25 07:01] LABS: FERRITIN 211.1 ng/mL (10.0-291.0)
[2021-06-25 08:00] VITALS: BP 179/98
[2021-06-25 12:00] VITALS: BP 144/86
[2021-06-25 16:00] VITALS: BP 1236/83
[2021-06-25 20:00] VITALS: BP 143/82
[2021-06-26] VITALS: BP 141/87
[2021-06-26 06:08] LABS: HEMATOCRIT 36.7 % (37.0-47.0); LYMPH # 0.9 10*3/uL (1.3-4.4); LYMPH % 25.5 % (27.0-41.0); MEAN CELL VOLUME 81.9 fl (81.0-99.0); MEAN CORPUSCULAR HGB 24.6 pg (27.0-31.0); MEAN PLATELET VOLUME 11.2 fl (9.6-12.3); MONO # 0.4 10*3/uL (0.1-1.0); MONO % 10.3 % (3.0-9.0); NEUT # 2.4 10*3/uL (2.3-7.9); NEUT % 63.9 % (47.0-73.0); PLATELET COUNT AUTOMATED 121 10*3/uL (130-400); RED BLOOD COUNT 4.48 10*6/uL (4.10-5.10); WHITE BLOOD COUNT 3.7 10*3/uL (4.8-10.8)
[2021-06-26 06:21] LABS: CREATININE 1.15 mg/dL (0.55-1.02); POTASSIUM 3.5 mmol/L (3.5-5.1)
[2021-06-26 08:17] VITALS: BP 141/87
[2021-06-26] MEDS ORDERED: OXYBUTYNIN5 MG PO (11:44)
[2021-06-26] MEDS ORDERED: Motrin,Rufen800 MG PO (11:44)
[2021-06-26] MEDS ORDERED: LASIX20 MG PO (11:46)
[2021-06-26] MEDS ORDERED: DECADRON6 M1 PO (11:46)
[2021-06-26 12:01] VITALS: BP 110/67
== END 2021-06-26 12:19 | disposition home or self-care (01) | DRG 871 ==
LOC: ED 11:20 → EDHOLD 14:19 → 4E 14:47
PROVIDERS: Internal Medicine; Student in an Organized Health Care Education/Training Program; ADMIT Family Medicine; ATTEND Family Medicine
DX: A41.9 Sepsis, unspecified organism (principal); U07.1 COVID-19; J12.82 Pneumonia due to coronavirus disease 2019; I50.33 Acute on chronic diastolic (congestive) heart failure; E44.0 Moderate protein-calorie malnutrition; D61.818 Other pancytopenia; I13.0 Hypertensive heart and chronic kidney disease with heart failure and stage 1 through stage 4 chronic kidney disease, or unspecified chronic kidney disease; Z68.42 Body mass index [BMI] 45.0-49.9, adult; R73.03 Prediabetes; D64.9 Anemia, unspecified; E66.01 Morbid (severe) obesity due to excess calories; J45.909 Unspecified asthma, uncomplicated; N32.81 Overactive bladder; N18.31 Chronic kidney disease, stage 3a; Z90.710 Acquired absence of both cervix and uterus; Z82.49 Family history of ischemic heart disease and other diseases of the circulatory system; Z81.1 Family history of alcohol abuse and dependence; Z79.899 Other long term (current) drug therapy